=== PATIENT | female | born 1985 | race Caucasian/White ===

== ENCOUNTER 2020-01-12 09:55 | Inpatient (IN) ==
[2020-01-12 10:41] LABS: Hemoglobin 10.3 g/dL (11.5-15.4); Mean Corpuscular HGB Conc 30.3 g/dL (31.6-35.5); Mean Corpuscular Hemoglobin 22.2 pg (28.0-33.3); Mean Corpuscular Volume 73.3 fL (83.0-100.0); Mean Platelet Volume 10.1 fL (9.4-12.4); Platelet Count 275 K/mcL (140-400); Red Blood Count 4.64 M/mcL (3.82-4.97); Red Cell Distribution Width 21.2 % (11.5-14.5)
[2020-01-12 10:46] LABS: White Blood Count 18.3 K/mcL (4.3-11.1)
[2020-01-12 11:23] LABS: Anisocytosis 1+ (Not Present); Lymphocytes # 1.1 K/mcL (0.6-4.6); Monocytes # 1.1 K/mcL (0.0-1.3); Neutrophils # 16.1 K/mcL (1.6-8.9); Platelet Estimate Normal (Normal)
[2020-01-12] MEDS ORDERED: 0.9 % Sodium Chloride 500 ML ONE ×2 (12:55→13:21)
[2020-01-12 12:56] LABS: Troponin I < 0.03 ng/mL (< 0.04)
[2020-01-12 13:12] LABS: BUN/Creatinine Ratio 17 (6-26); Blood Urea Nitrogen 52 mg/dL (6-20); Carbon Dioxide 12 mEq/L (23-29); Chloride 113 mEq/L (98-107); Glucose 123 mg/dL (70-105); Osmolality,Calculated 303 (280-300); Potassium 6.2 mEq/L (3.5-5.1); Sodium 139 mEq/L (136-145); eGFR For African Americans 20 (> 60); eGFR For Non-African Americans 17 (> 60)
[2020-01-12] MEDS ORDERED: *HR* FentaNYL (PF) 100 MCG/2 ML VIAL IVP ONE (13:22)
[2020-01-12] MEDS ORDERED: *HR* Midazolam HCl 2 MG/2 ML VIAL IVP ONE (13:22)
[2020-01-12] MEDS ORDERED: Ampicillin/Sulbactam 1,500 MG in 0.9 % Sodium Chloride Mini Bag 100 ML IVPB ONE (13:23)
[2020-01-12] MEDS ORDERED: *HR* FentaNYL (PF) 100 MCG/2 ML VIAL ONE (13:26)
[2020-01-12] MEDS ORDERED: *HR* Midazolam HCl 2 MG/2 ML VIAL ONE (13:27)
[2020-01-12] MEDS ORDERED: Isovue-300 50ML VIAL IVP ONE (13:47)
[2020-01-12] MEDS: 0.9 % Sodium Chloride 1,000 ML IVC SCH ×2 (14:13→15:37)
[2020-01-12] MEDS ORDERED: Mag Hydrox/Al Hydrox/Simeth 30 ML UDC PO PRN (14:24)
[2020-01-12] MEDS ORDERED: 0.9 % Sodium Chloride 1,000 ML IVC ONE (14:24)
[2020-01-12] MEDS ORDERED: Naloxone 0.4 MG/ML INJ IVP PRN (14:24)
[2020-01-12] MEDS ORDERED: Ondansetron ODT 4 MG TAB.RAPDIS SL PRN (14:24)
[2020-01-12] MEDS ORDERED: MOM Conc 10 ML UD.LIQ PO PRN (14:24)
[2020-01-12 14:25] LABS: Bilirubin,Urine Negative (Negative); Blood,Urine Large (Negative); Clarity,Urine Turbid (Clear); Glucose,Urine (UA) Normal (Normal); Ketones,Urine Negative (Negative); Leukocyte Esterase,Urine Large (Negative); Nitrite,Urine Negative (Negative); PH,Urine 7.5 pH Units (5.0-8.0); Protein,Urine 100 mg/dL (Neg-Trace); Specific Gravity,Urine > 1.030 (1.010-1.025); Urobilinogen,Urine Normal (Normal)
[2020-01-12 14:27] LABS: Color,Urine Red (Yellow)
[2020-01-12 14:33] LABS: Bacteria,Urine Many per hpf (None-Few); RBC,Urine TNTC per hpf (0-3); WBC,Urine TNTC per hpf (0-3)
[2020-01-12] MEDS ORDERED: *HR* HYDROcodone/Acet 5/325 mg TABLET PO PRN (14:37)
[2020-01-12] MEDS: cefTRIAXone 2,000 MG in Water for inj. (sterile) 20 ML IVP SCH (15:36)
[2020-01-12] MEDS: *HR* Heparin 5,000 UNIT/ML VIAL SQ SCH ×2 (15:38→23:55)
[2020-01-12] MEDS ORDERED: *HR* FentaNYL (PF) 100 MCG/2 ML VIAL IVP PRN (15:45)
[2020-01-12] MEDS: Acetaminophen 325 MG TABLET PO PRN (17:35)
[2020-01-12 19:36] LABS: BUN/Creatinine Ratio 17 (6-26); Blood Urea Nitrogen 45 mg/dL (6-20); Calcium 8.1 mg/dL (8.6-10.3); Carbon Dioxide 10 mEq/L (23-29); Chloride 115 mEq/L (98-107); Glucose 128 mg/dL (70-105); Osmolality,Calculated 303 (280-300); Potassium 4.8 mEq/L (3.5-5.1); Sodium 140 mEq/L (136-145); Troponin I < 0.03 ng/mL (< 0.04); eGFR For African Americans 24 (> 60); eGFR For Non-African Americans 20 (> 60)
[2020-01-12 20:16] LABS: ABG Base Excess -10 mEq/L (-2 to 3); ABG HCO3 14 mEq/L (21-27); ABG Oxygen Saturation 86 % (95-98); ABG PCO2 26 mmHg (35-45); ABG PH 7.35 pH Units (7.32-7.45); ABG PO2 52 mmHg (85-104); ABG TCO2 15 mEq/L (20-26)
[2020-01-12] MEDS ORDERED: *HR* Metoprolol 5 MG/5 ML VIAL IVP ONE (20:50)
[2020-01-13 05:29] LABS: Basophils % 0.3 %; Eosinophils # 0.1 K/mcL (0.0-0.6); Eosinophils % 1.2 %; Hematocrit 28.2 % (35.3-44.9); Immature Granulocytes % 1.1 % (0-4); Lymphocytes # 0.5 K/mcL (0.6-4.6); Lymphocytes % 4.3 %; Mean Corpuscular HGB Conc 30.9 g/dL (31.6-35.5); Mean Corpuscular Hemoglobin 21.8 pg (28.0-33.3); Mean Corpuscular Volume 70.5 fL (83.0-100.0); Mean Platelet Volume 10.4 fL (9.4-12.4); Monocytes # 0.9 K/mcL (0.0-1.3); Monocytes % 8.1 %; Neutrophils # 9.6 K/mcL (1.6-8.9); Platelet Count 213 K/mcL (140-400); Red Cell Distribution Width 20.8 % (11.5-14.5); White Blood Count 11.3 K/mcL (4.3-11.1)
[2020-01-13 05:31] LABS: Hemoglobin 8.7 g/dL (11.5-15.4)
[2020-01-13 05:39] LABS: Calcium 8.3 mg/dL (8.6-10.3); Magnesium 1.8 mg/dL (1.6-2.6); Potassium 4.5 mEq/L (3.5-5.1)
[2020-01-13 05:56] LABS: Anisocytosis 1+ (Not Present); Platelet Estimate Normal (Normal)
[2020-01-13] MEDS: *HR* Heparin 5,000 UNIT/ML VIAL SQ SCH ×2 (08:12→15:26)
[2020-01-13] MEDS ORDERED: *HR* Metoprolol 5 MG/5 ML VIAL IVP ONE (09:35)
[2020-01-13] MEDS ORDERED: 0.9 % Sodium Chloride 1,000 ML IV ONE (09:37)
[2020-01-13] MEDS ORDERED: Gentamicin 110 MG in 0.9 % Sodium Chloride 100 ML IVPB ONE (14:36)
[2020-01-13] MEDS ORDERED: 0.9 % Sodium Chloride 1,000 ML IVC SCH (14:45)
[2020-01-13] MEDS: *HR* Metoprolol 5 MG/5 ML VIAL IVP PRN ×2 (14:47→20:57)
[2020-01-13] MEDS: cefTRIAXone 2,000 MG in Water for inj. (sterile) 20 ML IVP SCH (15:25)
[2020-01-13] MEDS: Acetaminophen 325 MG TABLET PO PRN (15:38)
[2020-01-13] MEDS: Ondansetron 4 MG/2 ML VIAL IVP PRN (20:57)
[2020-01-13] MEDS ORDERED: *HR* Promethazine 25 MG/ML VIAL IVP PRN (23:03)
[2020-01-14] MEDS: *HR* Heparin 5,000 UNIT/ML VIAL SQ SCH ×4 (00:49→23:23)
[2020-01-14 06:34] LABS: Basophils % 0.5 %; Eosinophils # 0.1 K/mcL (0.0-0.6); Eosinophils % 1.4 %; Hematocrit 21.9 % (35.3-44.9); Hemoglobin 6.9 g/dL (11.5-15.4); Immature Granulocytes % 0.8 % (0-4); Lymphocytes % 12.6 %; Mean Corpuscular HGB Conc 31.5 g/dL (31.6-35.5); Mean Platelet Volume 10.7 fL (9.4-12.4); Monocytes # 0.8 K/mcL (0.0-1.3); Neutrophils # 5.9 K/mcL (1.6-8.9); Platelet Count 221 K/mcL (140-400); Red Blood Count 3.13 M/mcL (3.82-4.97); Red Cell Distribution Width 21.2 % (11.5-14.5); Segmented Neutrophils % 74.7 %; White Blood Count 7.8 K/mcL (4.3-11.1)
[2020-01-14 06:51] LABS: BUN/Creatinine Ratio 26 (6-26); Blood Urea Nitrogen 53 mg/dL (6-20); Calcium 8.1 mg/dL (8.6-10.3); Carbon Dioxide 15 mEq/L (23-29); Chloride 122 mEq/L (98-107); Glucose 77 mg/dL (70-105); Osmolality,Calculated 313 (280-300); Potassium 4.1 mEq/L (3.5-5.1); Sodium 145 mEq/L (136-145); eGFR For African Americans 33 (> 60); eGFR For Non-African Americans 27 (> 60)
[2020-01-14] MEDS: Ondansetron 4 MG/2 ML VIAL IVP PRN (10:43)
[2020-01-14 12:23] LABS: Hematocrit 26.1 % (35.3-44.9); Hemoglobin 7.5 g/dL (11.5-15.4)
[2020-01-14] MEDS ORDERED: *HR* OxyCODONE Immed Rel 5 MG TABLET PO PRN (12:23)
[2020-01-14] MEDS ORDERED: *HR* HYDROcodone/Acet 5/325 mg TABLET PO PRN (12:24)
[2020-01-14 14:40] LABS: Iron < 10 mcg/dL (50-170); Transferrin 156 mg/dL (203-362)
[2020-01-14] MEDS: cefTRIAXone 2,000 MG in Water for inj. (sterile) 20 ML IVP SCH (15:16)
[2020-01-14] MEDS: Iron Sucrose Complex 250 MG in 0.9 % Sodium Chloride 250 ML IVPB SCH (17:59)
[2020-01-15 04:59] LABS: Basophils % 0.6 %; Eosinophils # 0.3 K/mcL (0.0-0.6); Eosinophils % 4.1 %; Hematocrit 19.7 % (35.3-44.9); Hemoglobin 6.1 g/dL (11.5-15.4); Immature Granulocytes % 0.7 % (0-4); Lymphocytes # 0.9 K/mcL (0.6-4.6); Lymphocytes % 13.7 %; Mean Corpuscular Hemoglobin 21.8 pg (28.0-33.3); Mean Corpuscular Volume 70.4 fL (83.0-100.0); Mean Platelet Volume 10.5 fL (9.4-12.4); Monocytes # 0.5 K/mcL (0.0-1.3); Monocytes % 7.1 %; Neutrophils # 5.1 K/mcL (1.6-8.9); Platelet Count 195 K/mcL (140-400); Red Cell Distribution Width 21.2 % (11.5-14.5); Segmented Neutrophils % 73.8 %; White Blood Count 6.9 K/mcL (4.3-11.1)
[2020-01-15 05:09] LABS: Potassium 3.8 mEq/L (3.5-5.1)
[2020-01-15 05:49] LABS: Basophils # 0.1 K/mcL (0.0-0.2); Basophils % 0.7 %; Eosinophils # 0.3 K/mcL (0.0-0.6); Eosinophils % 4.1 %; Hematocrit 19.5 % (35.3-44.9); Immature Granulocytes % 0.6 % (0-4); Lymphocytes # 0.9 K/mcL (0.6-4.6); Lymphocytes % 13.7 %; Mean Corpuscular HGB Conc 30.8 g/dL (31.6-35.5); Mean Corpuscular Hemoglobin 21.7 pg (28.0-33.3); Mean Corpuscular Volume 70.7 fL (83.0-100.0); Mean Platelet Volume 10.7 fL (9.4-12.4); Monocytes # 0.6 K/mcL (0.0-1.3); Monocytes % 8.3 %; Neutrophils # 4.9 K/mcL (1.6-8.9); Platelet Count 191 K/mcL (140-400); Red Blood Count 2.76 M/mcL (3.82-4.97); Red Cell Distribution Width 21.2 % (11.5-14.5); Segmented Neutrophils % 72.6 %; White Blood Count 6.8 K/mcL (4.3-11.1)
[2020-01-15] MEDS ORDERED: 0.9 % Sodium Chloride 500 ML IVC ONE (06:26)
[2020-01-15] MEDS: *HR* Heparin 5,000 UNIT/ML VIAL SQ SCH ×3 (08:15→22:48)
[2020-01-15] MEDS: Iron Sucrose Complex 250 MG in 0.9 % Sodium Chloride 250 ML IVPB SCH (08:16)
[2020-01-15] MEDS ORDERED: 0.9 % Sodium Chloride 250 ML ONE (12:35)
[2020-01-15] MEDS: cefTRIAXone 2,000 MG in Water for inj. (sterile) 20 ML IVP SCH (15:22)
[2020-01-15 17:08] LABS: Hematocrit 24.8 % (35.3-44.9)
[2020-01-15 17:09] LABS: Hemoglobin 7.7 g/dL (11.5-15.4)
[2020-01-16 03:32] LABS: Basophils % 0.6 %; Eosinophils # 0.4 K/mcL (0.0-0.6); Eosinophils % 5.7 %; Hematocrit 23.3 % (35.3-44.9); Hemoglobin 7.4 g/dL (11.5-15.4); Immature Granulocytes % 0.6 % (0-4); Lymphocytes # 1.2 K/mcL (0.6-4.6); Lymphocytes % 16.7 %; Mean Corpuscular HGB Conc 31.8 g/dL (31.6-35.5); Mean Corpuscular Hemoglobin 23.9 pg (28.0-33.3); Mean Corpuscular Volume 75.2 fL (83.0-100.0); Mean Platelet Volume 10.1 fL (9.4-12.4); Monocytes # 0.9 K/mcL (0.0-1.3); Monocytes % 12.4 %; Neutrophils # 4.5 K/mcL (1.6-8.9); Platelet Count 186 K/mcL (140-400); Red Cell Distribution Width 23.2 % (11.5-14.5)
[2020-01-16 03:54] LABS: Calcium 8.1 mg/dL (8.6-10.3); Magnesium 1.7 mg/dL (1.6-2.6); Potassium 3.8 mEq/L (3.5-5.1)
[2020-01-16 04:05] LABS: Platelet Estimate Normal (Normal)
[2020-01-16] MEDS: *HR* Heparin 5,000 UNIT/ML VIAL SQ SCH (08:04)
[2020-01-16] MEDS: Iron Sucrose Complex 250 MG in 0.9 % Sodium Chloride 250 ML IVPB SCH (08:05)
[2020-01-16 08:39] LABS: Hematocrit 23.5 % (35.3-44.9); Hemoglobin 7.5 g/dL (11.5-15.4)
[2020-01-16 10:34] VITALS: BP 100/68
== END 2020-01-16 15:00 | disposition home health service (06) | DRG 710 ==
LOC: EMEROOARM 09:55 → SUATTDRO 14:24 → 3NENU 14:31 → 3ANU 01-13 19:58
PROVIDERS: ADMIT Student in an Organized Health Care Education/Training Program; ATTEND Student in an Organized Health Care Education/Training Program

== ENCOUNTER 2020-01-22 23:57 | Inpatient (IN) ==
[2020-01-23] MEDS ORDERED: 0.9 % Sodium Chloride 500 ML IVC ONE (00:10)
[2020-01-23] MEDS ORDERED: Pantoprazole 40 MG VIAL IVP ONE (00:10)
[2020-01-23 01:24] LABS: Eosinophils % 0.4 %; Immature Granulocytes % 4.6 % (0-4)
[2020-01-23 01:25] LABS: Basophils # 0.1 K/mcL (0.0-0.2); Basophils % 0.7 %; Eosinophils # 0.1 K/mcL (0.0-0.6); Lymphocytes # 2.1 K/mcL (0.6-4.6); Lymphocytes % 13.9 %; Mean Corpuscular HGB Conc 30.6 g/dL (31.6-35.5); Mean Corpuscular Hemoglobin 25.5 pg (28.0-33.3); Mean Corpuscular Volume 83.3 fL (83.0-100.0); Mean Platelet Volume 10.3 fL (9.4-12.4); Monocytes % 6.5 %; Neutrophils # 11.2 K/mcL (1.6-8.9); Nucleated Red Blood Cells 0.3 /100 WBC (0); Platelet Count 596 K/mcL (140-400); Red Blood Count 2.04 M/mcL (3.82-4.97); Red Cell Distribution Width 27.2 % (11.5-14.5); Segmented Neutrophils % 73.9 %; White Blood Count 15.1 K/mcL (4.3-11.1)
[2020-01-23 01:32] LABS: Hemoglobin 5.2 g/dL (11.5-15.4)
[2020-01-23 01:43] LABS: BUN/Creatinine Ratio 30 (6-26); Blood Urea Nitrogen 31 mg/dL (6-20); Calcium 8.4 mg/dL (8.6-10.3); Carbon Dioxide 18 mEq/L (23-29); Chloride 109 mEq/L (98-107); Glucose 99 mg/dL (70-105); Osmolality,Calculated 293 (280-300); Potassium 3.7 mEq/L (3.5-5.1); Sodium 138 mEq/L (136-145); eGFR For African Americans > 60 (> 60); eGFR For Non-African Americans 59 (> 60)
[2020-01-23] MEDS ORDERED: 0.9 % Sodium Chloride 1,000 ML IVC ONE (01:55)
[2020-01-23 02:09] LABS: Anisocytosis 1+ (Not Present); Platelet Estimate Increased (Normal); Poikilocytosis 2+ (Not Present); Polychromasia 2+ (Not Present)
[2020-01-23] MEDS ORDERED: 0.9 % Sodium Chloride 250 ML ONE ×2 (03:05→06:17)
[2020-01-23] MEDS ORDERED: Naloxone 0.4 MG/ML INJ IVP PRN (03:15)
[2020-01-23 03:22] LABS: Bilirubin,Urine Negative (Negative); Blood,Urine Large (Negative); Clarity,Urine Cloudy (Clear); Color,Urine Yellow (Yellow); Glucose,Urine (UA) Normal (Normal); Ketones,Urine 15 mg/dL (Negative); Leukocyte Esterase,Urine Moderate (Negative); Nitrite,Urine Negative (Negative); Protein,Urine 100 mg/dL (Neg-Trace); Specific Gravity,Urine 1.017 (1.010-1.025); Urobilinogen,Urine Normal (Normal)
[2020-01-23 03:24] LABS: Hyaline Casts,Urine Few per lpf (None-Few); RBC,Urine 15-30 per hpf (0-3); Squamous Epithelial Cell,Urine Many per lpf (None-Few); WBC,Urine 30-50 per hpf (0-3)
[2020-01-23 03:34] LABS: Bacteria,Urine Few per hpf (None-Few)
[2020-01-23] MEDS: cefTRIAXone 2,000 MG in Water for inj. (sterile) 20 ML IVP SCH (05:38)
[2020-01-23 06:40] LABS: Hemoglobin 6.6 g/dL (11.5-15.4); Mean Corpuscular HGB Conc 31.4 g/dL (31.6-35.5); Mean Corpuscular Hemoglobin 27.6 pg (28.0-33.3); Mean Corpuscular Volume 87.9 fL (83.0-100.0); Nucleated Red Blood Cells 0.5 /100 WBC (0); Platelet Count 466 K/mcL (140-400); Red Blood Count 2.39 M/mcL (3.82-4.97); Red Cell Distribution Width 24.8 % (11.5-14.5); White Blood Count 12.5 K/mcL (4.3-11.1)
[2020-01-23 06:56] LABS: BUN/Creatinine Ratio 29 (6-26); Blood Urea Nitrogen 27 mg/dL (6-20); Calcium 7.4 mg/dL (8.6-10.3); Carbon Dioxide 17 mEq/L (23-29); Chloride 116 mEq/L (98-107); Glucose 93 mg/dL (70-105); Osmolality,Calculated 299 (280-300); Potassium 3.3 mEq/L (3.5-5.1); Sodium 142 mEq/L (136-145); eGFR For African Americans > 60 (> 60); eGFR For Non-African Americans > 60 (> 60)
[2020-01-23 07:25] LABS: Anisocytosis 1+ (Not Present); Eosinophils # 0.3 K/mcL (0.0-0.6); Lymphocytes # 0.8 K/mcL (0.6-4.6); Microcytosis Present (Not Present); Monocytes # 0.3 K/mcL (0.0-1.3); Neutrophils # 10.8 K/mcL (1.6-8.9)
[2020-01-23 07:26] LABS: Hypochromasia Present (Not Present); Platelet Estimate Increased (Normal)
[2020-01-23] MEDS ORDERED: Acetaminophen 325 MG TABLET PO PRN (09:01)
[2020-01-23] MEDS ORDERED: 0.9 % Sodium Chloride 500 ML IVC SCH (11:00)
[2020-01-23] MEDS ORDERED: *HR* Propofol 200 MG/20 ML VIAL IVP ONE (11:58)
[2020-01-23] MEDS ORDERED: Lidocaine 2% Syringe 100 MG/5 ML IV ONE (11:58)
[2020-01-23] MEDS: Pantoprazole 40 MG VIAL IVP SCH (16:52)
[2020-01-23 17:23] LABS: Hematocrit 25.3 % (35.3-44.9); Hemoglobin 8.1 g/dL (11.5-15.4)
[2020-01-23] MEDS: Ferrous Sulfate Oral Soln 300 MG/5 ML UDC PO SCH (21:38)
[2020-01-23] MEDS ORDERED: Melatonin 3 MG TABLET PO ONE (22:00)
[2020-01-24] MEDS: cefTRIAXone 2,000 MG in Water for inj. (sterile) 20 ML IVP SCH (04:34)
[2020-01-24] MEDS: Pantoprazole 40 MG VIAL IVP SCH ×2 (06:16→18:25)
[2020-01-24] MEDS: Ferrous Sulfate Oral Soln 300 MG/5 ML UDC PO SCH ×2 (09:24→20:36)
[2020-01-24 10:20] LABS: Hematocrit 26.6 % (35.3-44.9); Hemoglobin 8.3 g/dL (11.5-15.4); Mean Corpuscular HGB Conc 31.2 g/dL (31.6-35.5); Mean Corpuscular Hemoglobin 27.9 pg (28.0-33.3); Mean Corpuscular Volume 89.6 fL (83.0-100.0); Mean Platelet Volume 9.9 fL (9.4-12.4); Platelet Count 490 K/mcL (140-400); Red Blood Count 2.97 M/mcL (3.82-4.97); Red Cell Distribution Width 22.5 % (11.5-14.5)
[2020-01-24 10:27] LABS: BUN/Creatinine Ratio 12 (6-26); Blood Urea Nitrogen 11 mg/dL (6-20); Calcium 8.1 mg/dL (8.6-10.3); Carbon Dioxide 16 mEq/L (23-29); Chloride 116 mEq/L (98-107); Glucose 82 mg/dL (70-105); Osmolality,Calculated 286 (280-300); Sodium 139 mEq/L (136-145); eGFR For African Americans > 60 (> 60); eGFR For Non-African Americans > 60 (> 60)
[2020-01-25] MEDS: Pantoprazole 40 MG VIAL IVP SCH (05:09)
[2020-01-25] MEDS: cefTRIAXone 2,000 MG in Water for inj. (sterile) 20 ML IVP SCH (05:09)
[2020-01-25 06:03] LABS: Hematocrit 27.4 % (35.3-44.9); Hemoglobin 8.3 g/dL (11.5-15.4); Mean Corpuscular HGB Conc 30.3 g/dL (31.6-35.5); Mean Corpuscular Hemoglobin 27.7 pg (28.0-33.3); Mean Corpuscular Volume 91.3 fL (83.0-100.0); Mean Platelet Volume 9.8 fL (9.4-12.4); Platelet Count 543 K/mcL (140-400); Red Cell Distribution Width 23.2 % (11.5-14.5); White Blood Count 5.8 K/mcL (4.3-11.1)
[2020-01-25 06:39] LABS: BUN/Creatinine Ratio 9 (6-26); Blood Urea Nitrogen 9 mg/dL (6-20); Carbon Dioxide 17 mEq/L (23-29); Chloride 116 mEq/L (98-107); Glucose 97 mg/dL (70-105); Osmolality,Calculated 289 (280-300); Potassium 3.9 mEq/L (3.5-5.1); Sodium 140 mEq/L (136-145); eGFR For African Americans > 60 (> 60); eGFR For Non-African Americans > 60 (> 60)
[2020-01-25 06:59] VITALS: BP 100/68
[2020-01-25] MEDS: Ferrous Sulfate Oral Soln 300 MG/5 ML UDC PO SCH (08:17)
== END 2020-01-25 12:32 | disposition home health service (06) | DRG 720 ==
LOC: 3ANU 23:57 → EMEROOARM 23:57 → SUATTDRO 01-23 03:21 → 3ANU 01-23 03:45 → SUATTDRO 01-23 11:16
PROVIDERS: ADMIT Internal Medicine; ATTEND Student in an Organized Health Care Education/Training Program
PROC: ENDOEBX (2020-01-23 10:30)